=== PATIENT | male | born 1975 | race Two or more races ===

== ENCOUNTER 2018-04-02 12:47 | Emergency (ER) | payer OTHER ==
[2018-04-02 14:49] VITALS: BP 159/80
== END 2018-04-02 15:48 | disposition home or self-care (01) ==
LOC: ER 12:47
DX: S02.5XXA Fracture of tooth (traumatic), initial encounter for closed fracture (principal); R51 Headache; W22.8XXA Striking against or struck by other objects, initial encounter; Y93.89 Activity, other specified; Y92.89 Other specified places as the place of occurrence of the external cause; Y99.8 Other external cause status
CPT/HCPCS: 70450; 70486